=== PATIENT | male | born 1980 | race Caucasian/White ===

== ENCOUNTER 2017-03-02 01:10 | Emergency (ER) | payer OTHER ==
[~2017-03-02] VITALS: Ht 182.9 cm; Wt 68.0 kg
[2017-03-02] MEDS ORDERED: FERR1TAB8 (01:33)
[2017-03-02] MEDS ORDERED: PROAAER10 (01:33)
[2017-03-02] MEDS ORDERED: KETOROLAC 30 MG/ML VIAL (J1885) IV ONE (05:15)
[2017-03-02] MEDS ORDERED: NS 1,000 ML IV ONE (05:15)
[2017-03-02] MEDS ORDERED: diphenhydrAMINE INJ 50MG/ML VIAL (J1200) IV ONE (05:15)
[2017-03-02] MEDS ORDERED: METOCLOPRAMIDE INJ 10MG/2ML VIAL (J2765) IV ONE (05:15)
[2017-03-02 06:53] VITALS: BP 116/62
== END 2017-03-02 06:57 | disposition home or self-care (01) ==
LOC: M ED 03:16
DX: G43.909 Migraine, unspecified, not intractable, without status migrainosus (principal); J45.909 Unspecified asthma, uncomplicated; F17.200 Nicotine dependence, unspecified, uncomplicated; Z79.899 Other long term (current) drug therapy

== ENCOUNTER 2017-06-06 09:38 | Emergency (ER) | payer OTHER, SELFPAY ==
[~2017-06-06] VITALS: Ht 188 cm; Wt 72.7 kg
[~2017-06-06 09:38] MED LIST: FERR1TAB8; PROAAER10
[2017-06-06 09:42] VITALS: BP 143/84
[2017-06-06] MEDS ORDERED: CLINDAMYCIN 150 MG CAP PO ONE (10:00)
[2017-06-06] MEDS ORDERED: IBUPROFEN 800 MG TAB PO ONE (10:00)
[2017-06-06] MEDS ORDERED: CLIN150C14 PO (10:02)
[2017-06-06] MEDS ORDERED: IBUP80TA PO (10:02)
== END 2017-06-06 10:19 | disposition home or self-care (01) ==
LOC: M ED 09:38
DX: S02.5XXA Fracture of tooth (traumatic), initial encounter for closed fracture (principal); X58.XXXA Exposure to other specified factors, initial encounter; Y92.89 Other specified places as the place of occurrence of the external cause; Y93.89 Activity, other specified; Y99.8 Other external cause status; K04.7 Periapical abscess without sinus; J45.909 Unspecified asthma, uncomplicated; G43.909 Migraine, unspecified, not intractable, without status migrainosus; M51.9 Unspecified thoracic, thoracolumbar and lumbosacral intervertebral disc disorder; Z91.030 Bee allergy status

== ENCOUNTER 2020-03-17 14:51 | Emergency (ER) | payer OTHER, SELFPAY ==
[~2020-03-17] VITALS: Ht 188 cm; Wt 74.7 kg
[~2020-03-17 14:51] MED LIST changes: +CLIN150C14 PO; +IBUP80TA PO
[2020-03-17] MEDS ORDERED: FAMOTIDINE INJ 20MG/2ML VIAL (S0028 PER 1) IVP ONE (15:15)
[2020-03-17] MEDS ORDERED: methylPREDNISolone INJ 125 MG/2 ML VIAL (J2930) IV ONE (15:15)
[2020-03-17] MEDS ORDERED: ALBUTEROL 90 MCG/ACT 8GM HFA INHALER INH ONE (15:30)
[2020-03-17] MEDS ORDERED: PRED20TA PO (17:04)
[2020-03-17] MEDS ORDERED: VENTAER INH (17:04)
[2020-03-17 17:05] VITALS: BP 108/57
== END 2020-03-17 17:09 | disposition home or self-care (01) ==
LOC: M ED 14:51
DX: M79.622 Pain in left upper arm (principal); T63.441A Toxic effect of venom of bees, accidental (unintentional), initial encounter; Y92.9 Unspecified place or not applicable; Y93.9 Activity, unspecified; Z72.0 Tobacco use; Z91.030 Bee allergy status
CPT/HCPCS: 94760; 96374; 96375; 99284; J2930

== ENCOUNTER 2020-07-25 15:11 | Emergency (ER) | payer OTHER ==
[~2020-07-25] VITALS: Ht 188 cm; Wt 74.9 kg
[~2020-07-25 15:11] MED LIST changes: +PRED20TA PO; +VENTAER INH
[2020-07-25] MEDS ORDERED: IBUP80TA (15:23)
[2020-07-25] MEDS ORDERED: PERCOCET 5MG/325MG TAB PO ONE (15:45)
[2020-07-25] MEDS ORDERED: CLINDAMYCIN 150MG CAPSULE PO ONE (15:45)
[2020-07-25] MEDS ORDERED: CLIN150C14 PO (15:47)
[2020-07-25] MEDS ORDERED: PERC5TAB12 PO (15:49)
[2020-07-25 16:05] VITALS: BP 137/67
== END 2020-07-25 16:11 | disposition home or self-care (01) ==
LOC: M ED 15:11
DX: K04.7 Periapical abscess without sinus (principal); Z91.048 Other nonmedicinal substance allergy status

== ENCOUNTER 2022-04-18 19:03 | Emergency (ER) | payer OTHER ==
[~2022-04-18] VITALS: Ht 188 cm; Wt 72.7 kg
[2022-04-18 19:03] VITALS: BP 150/76
[~2022-04-18 19:03] MED LIST changes: -CLIN150C14 PO; +CLIN150C17 PO; +IBUP80TA; +PERC5TAB12 PO
[2022-04-18] MEDS ORDERED: DERMABOND TOPICAL SKIN ADHESIVE TOP ONE (23:25)
== END 2022-04-18 23:52 | disposition home or self-care (01) ==
LOC: M ED 19:03
DX: S61.211A Laceration without foreign body of left index finger without damage to nail, initial encounter (principal); W26.0XXA Contact with knife, initial encounter; Y92.099 Unspecified place in other non-institutional residence as the place of occurrence of the external cause; J45.909 Unspecified asthma, uncomplicated; Z90.49 Acquired absence of other specified parts of digestive tract; F17.200 Nicotine dependence, unspecified, uncomplicated; Z91.030 Bee allergy status

== ENCOUNTER → 2024-02-24 | Outpatient (CLI) | payer SELFPAY | LOC: M RAD 12:16 | PROVIDERS: ATTEND Physician Assistant | DX: S90.02XA Contusion of left ankle, initial encounter (principal); X58.XXXA Exposure to other specified factors, initial encounter; Y92.9 Unspecified place or not applicable; Y93.9 Activity, unspecified; Y99.9 Unspecified external cause status ==